=== PATIENT | male | born 1995 | race Two or more races ===

== ENCOUNTER 2016-09-19 01:39 | Emergency (ER) | payer SELFPAY ==
[~2016-09-19] VITALS: Ht 175.3 cm; Wt 88.5 kg
[2016-09-19] MEDS ORDERED: IBUPROFEN 400 MG TABLET PO ONE (02:00)
[2016-09-19] MEDS ORDERED: IBUPROFEN 400 MG TABLET ONE (02:10)
--- NOTE | 2016-09-19 03:05 | NUR ---
OZ WRAP APPLIED TO RLE. +CMS BEFORE AND AFTER
[2016-09-19 03:15] VITALS: BP 115/63
== END 2016-09-19 03:21 | disposition home or self-care (01) ==
LOC: ER 01:41
DX: S93.401A Sprain of unspecified ligament of right ankle, initial encounter (principal); S20.219A Contusion of unspecified front wall of thorax, initial encounter; V43.62XA Car passenger injured in collision with other type car in traffic accident, initial encounter; Y93.89 Activity, other specified; Y92.488 Other paved roadways as the place of occurrence of the external cause; Y99.8 Other external cause status
CPT/HCPCS: 71010; 73610; 99284; A4606; Z7610